=== PATIENT | female | born 2000 | race Caucasian/White ===

== ENCOUNTER 2021-07-26 15:26 | Emergency (ER) | payer OTHER ==
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
--- NOTE | 2021-07-26 16:42 | CR ---
Cervical spine: AP, lateral and odontoid views of the cervical spine were obtained. Comparison: No prior cervical spine imaging is available. Vertebral body heights and disc spaces are preserved. Prevertebral soft tissues are normal. No fracture or subluxation is seen. Impression: 1. No abnormality is appreciated on 3-view cervical spine study. Diagnostic code #1
--- NOTE | 2021-07-26 16:42 | CR ---
Left clavicle: 2 views of the left clavicle were obtained. Comparison: No prior clavicle studies available. Clavicle is intact. No fracture or other bony abnormality is seen. Acromioclavicular joint is within normal limits. Impression: 1. No abnormality identified on 2-view left clavicle exam. Diagnostic code #1
== END 2021-07-26 17:05 | disposition left against medical advice (07) ==
LOC: JD.ED 15:26
DX: S16.1XXA Strain of muscle, fascia and tendon at neck level, initial encounter (principal); V59.49XA Driver of pick-up truck or van injured in collision with other motor vehicles in traffic accident, initial encounter
CPT/HCPCS: 72040; 72040-26; 73000-26-LT; 73000-LT; 81003; 99284